=== PATIENT | female | born 2000 | race Caucasian/White ===

== ENCOUNTER 2022-05-21 14:56 | Inpatient (IN) | payer MEDICAID, OTHER ==
[~2022-05-21] VITALS: Ht 167.6 cm; Wt 54.0 kg
[2022-05-21 16:52] LABS: BASOPHILS % (AUTO) 0.9 % (0.0-2.0); EOSINOPHILS % (AUTO) 3.1 % (1.0-6.0); HEMATOCRIT 39.2 % (36-46); HEMOGLOBIN 12.9 g/dL (12.0-16.0); LYMPHOCYTES # (AUTO) 2.1 K/uL (1.0-4.8); LYMPHOCYTES % (AUTO) 33.6 % (22.0-44.0); MEAN CORPUSCULAR HEMOGLOBIN 29.5 pg (26.0-34.0); MEAN CORPUSCULAR VOLUME 89 fL (80-100); MONOCYTES # (AUTO) 0.5 K/uL (0.1-1.0); MONOCYTES % (AUTO) 8.4 % (2.0-9.0); NEUTROPHILS # (AUTO) 3.3 K/uL (1.8-7.7); PLATELET COUNT (AUTO) 248 K/uL (150-450); RED BLOOD CELL COUNT(AUTO) 4.39 MIL/uL (4.00-5.20); RED CELL DISTRIBUTION WIDTH 12.8 % (11.5-14.5)
[2022-05-21 17:00] LABS: COVID AG,FIA SOURCE NASAL SWAB
[2022-05-21 17:17] LABS: AMPHET/METH SCREEN,URINE NEGATIVE (NEGATIVE); BARBITURATE SCREEN, URINE NEGATIVE (NEGATIVE); BENZODIAZEPINES SCREEN,URINE NEGATIVE (NEGATIVE); CANNABINOID SCREEN,URINE NEGATIVE (NEGATIVE); COCAINE SCREEN,URINE NEGATIVE (NEGATIVE); METHADONE SCREEN, URINE NEGATIVE (NEGATIVE); OPIATE SCREEN,URINE NEGATIVE (NEGATIVE)
[2022-05-21 17:17] LABS: ANION GAP 8 mmol/L (8-16); CALCIUM, TOTAL 9.2 mg/dL (8.8-10.5); CARBON DIOXIDE 27 mmol/L (22-29); CHLORIDE 103 mmol/L (98-107); GLUCOSE,RANDOM 86 mg/dL (70-110); POTASSIUM 3.7 mmol/L (3.5-5.1); SODIUM SERUM 138 mmol/L (136-145); UREA NITROGEN, BLOOD 10 mg/dL (7-18)
[2022-05-21 17:19] LABS: GLOMERULAR FILTR. RATE CALC > 60 mL/min (>60)
[2022-05-21 17:19] LABS: PHENCYCLIDINE SCREEN,URINE NEGATIVE (NEGATIVE)
[2022-05-21 17:23] LABS: ALANINE AMINOTRANSFERASE 12 U/L (12-78); ALBUMIN 3.9 g/dL (3.4-5.0); ALKALINE PHOSPHATASE 60 U/L (46-116); ASPARTATE AMINOTRANSFERASE 13 U/L (15-37); BILIRUBIN,TOTAL 0.3 mg/dL (0.1-1.0); TOTAL PROTEIN, SERUM 7.6 g/dL (6.4-8.2)
[2022-05-21] MEDS ORDERED: LORazepam 2 MG TABLET PO PRN (17:45)
[2022-05-21] MEDS ORDERED: ZOLPIDEM TARTRATE 10 MG TABLET PO PRN (17:45)
[2022-05-21] MEDS ORDERED: QUEtiapine FUMARATE 100 MG TABLET PO PRN (17:45)
[2022-05-21 17:55] LABS: APPEARANCE,URINE CLEAR (CLEAR); BILIRUBIN,URINE NEGATIVE (NEGATIVE); GLUCOSE, URINE (UA) NEGATIVE (NEGATIVE); KETONES,URINE NEGATIVE (NEGATIVE); LEUKOCYTE ESTERASE ,URINE LARGE (NEGATIVE); NITRATE,URINE NEGATIVE (NEGATIVE); OCCULT BLOOD,URINE NEGATIVE (NEGATIVE); PROTEIN,URINE NEGATIVE (NEGATIVE); UROBILINOGEN,URINE <=1.0 mg/dL (<=1.0)
[2022-05-21 18:08] LABS: BACTERIA,URINE Few /HPF (None Seen); RBC,URINE None Seen /HPF (0-2); SQUAMOUS EPITHELIAL CELL,UR Few /LPF (None Seen)
[2022-05-21] MEDS ORDERED: CEPHALEXIN MONOHYDRATE 500 MG CAPSULE PO ONE (18:45)
[2022-05-21 21:00] LABS: HCG,QUANTITATIVE < 1 mIU/mL (0-6)
[2022-05-21 23:30] VITALS: BP 108/66
[2022-05-22] MEDS ORDERED: OMEPRAZOLE 20 MG CAPSULE PO PRN (07:00)
[2022-05-22] MEDS ORDERED: ONDANSETRON HCL 4 MG TABLET PO PRN (07:00)
[2022-05-22] MEDS ORDERED: BENZOCAINE/MENTHOL LOZENGE PO PRN (07:00)
[2022-05-22] MEDS ORDERED: ACETAMINOPHEN 325 MG TABLET PO PRN (07:00)
[2022-05-22] MEDS ORDERED: CloNIDine HCL 0.1 MG TABLET PO PRN (07:00)
[2022-05-22] MEDS ORDERED: DOCUSATE SODIUM 100 MG CAPSULE PO PRN (07:00)
[2022-05-22] MEDS ORDERED: PETROLATUM,WHITE 28 GM JELLY TP PRN (07:00)
[2022-05-22] MEDS ORDERED: LOPERAMIDE HCL 2 MG CAPSULE PO PRN (07:00)
[2022-05-22] MEDS ORDERED: IBUPROFEN 600 MG TABLET PO PRN (07:00)
[2022-05-22] MEDS ORDERED: BACITRACIN 28 GM OINTMENT TP PRN (07:00)
[2022-05-22] MEDS ORDERED: MAG HYDROX/AL HYDROX/SIMETH ES 30 ML SUSPENSION UDCUP PO PRN (07:00)
[2022-05-22] MEDS ORDERED: MAGNESIUM HYDROXIDE SUSPENSION 30 ML UDCUP PO PRN (07:00)
[2022-05-22] MEDS ORDERED: ALBUTEROL SULFATE HFA 90 MCG/PUFF 8 GM INHALER IH PRN (07:00)
[2022-05-22] MEDS: CEPHALEXIN MONOHYDRATE 500 MG CAPSULE PO SCH ×2 (08:21→16:40)
[2022-05-22 08:47] VITALS: BP 114/64
[2022-05-22] MEDS ORDERED: OLAN5TAB77 PO (11:09)
[2022-05-22] MEDS: OLANZapine 5 MG TABLET PO SCH ×2 (11:15→21:00)
[2022-05-22] MEDS: SERTRALINE HCL 50 MG TABLET PO SCH (11:15)
[2022-05-22 16:07] VITALS: BP 106/62
[2022-05-23 08:00] VITALS: BP 107/62
[2022-05-23] MEDS: SERTRALINE HCL 50 MG TABLET PO SCH (09:00)
[2022-05-23] MEDS: OLANZapine 5 MG TABLET PO SCH (09:00)
[2022-05-23] MEDS: CEPHALEXIN MONOHYDRATE 500 MG CAPSULE PO SCH ×2 (09:00→17:12)
[2022-05-23 16:00] VITALS: BP 111/68
[2022-05-23] MEDS: RisperiDONE 2 MG TABLET PO SCH (20:14)
[2022-05-24 08:30] VITALS: BP 101/61
[2022-05-24] MEDS: SERTRALINE HCL 50 MG TABLET PO SCH (09:00)
[2022-05-24] MEDS: RisperiDONE 2 MG TABLET PO SCH ×2 (09:00→20:38)
[2022-05-24] MEDS: CEPHALEXIN MONOHYDRATE 500 MG CAPSULE PO SCH ×2 (09:51→17:45)
[2022-05-24 16:22] VITALS: BP 104/60
[2022-05-25] MEDS: CEPHALEXIN MONOHYDRATE 500 MG CAPSULE PO SCH ×2 (08:20→16:19)
[2022-05-25] MEDS: SERTRALINE HCL 50 MG TABLET PO SCH (08:23)
[2022-05-25] MEDS: RisperiDONE 2 MG TABLET PO SCH ×2 (08:23→21:00)
[2022-05-25 09:33] VITALS: BP 105/64
[2022-05-25 16:00] VITALS: BP 115/68
[2022-05-25 21:42] VITALS: BP 122/75
[2022-05-26] MEDS: SERTRALINE HCL 50 MG TABLET PO SCH ×2 (08:09→09:00)
[2022-05-26] MEDS: CEPHALEXIN MONOHYDRATE 500 MG CAPSULE PO SCH ×2 (08:09→17:00)
[2022-05-26] MEDS: RisperiDONE 2 MG TABLET PO SCH ×3 (08:09→20:27)
[2022-05-26 08:40] VITALS: BP 98/62
[2022-05-26 16:39] VITALS: BP 107/71
[2022-05-27 07:39] LABS: COVID AG,FIA SOURCE NASAL SWAB
[2022-05-27] MEDS: CEPHALEXIN MONOHYDRATE 500 MG CAPSULE PO SCH ×3 (08:11→17:00)
[2022-05-27] MEDS: SERTRALINE HCL 50 MG TABLET PO SCH (08:11)
[2022-05-27] MEDS: RisperiDONE 2 MG TABLET PO SCH ×2 (08:11→20:15)
[2022-05-27 08:30] VITALS: BP 107/66
[2022-05-27 16:00] VITALS: BP 118/75
[2022-05-28 08:58] VITALS: BP 122/79
[2022-05-28] MEDS: SERTRALINE HCL 50 MG TABLET PO SCH (09:00)
[2022-05-28] MEDS: RisperiDONE 2 MG TABLET PO SCH ×2 (09:00→20:54)
[2022-05-28] MEDS: CEPHALEXIN MONOHYDRATE 500 MG CAPSULE PO SCH ×2 (09:00→17:00)
[2022-05-28 16:09] VITALS: BP 102/74
[2022-05-29 08:56] VITALS: BP 114/69
[2022-05-29] MEDS: RisperiDONE 2 MG TABLET PO SCH ×2 (09:00→21:00)
[2022-05-29] MEDS: SERTRALINE HCL 50 MG TABLET PO SCH (09:00)
[2022-05-29] MEDS ORDERED: HALOPERIDOL LACTATE 5 MG/ML VIAL ONE (19:38)
[2022-05-29] MEDS ORDERED: DiphenhydrAMINE HCL 50 MG/ML VIAL ONE (19:38)
[2022-05-29] MEDS ORDERED: LORazepam 2 MG/ML VIAL ONE (19:38)
[2022-05-29] MEDS ORDERED: LORazepam 2 MG/ML VIAL IM ONE (19:45)
[2022-05-29] MEDS ORDERED: HALOPERIDOL LACTATE 5 MG/ML VIAL IM ONE (19:45)
[2022-05-29] MEDS ORDERED: DiphenhydrAMINE HCL 50 MG/ML VIAL IM ONE (19:45)
[2022-05-30] MEDS: SERTRALINE HCL 50 MG TABLET PO SCH (08:35)
[2022-05-30] MEDS: RisperiDONE 2 MG TABLET PO SCH ×2 (08:35→20:32)
[2022-05-30 16:13] VITALS: BP 121/70
[2022-05-31] MEDS: SERTRALINE HCL 50 MG TABLET PO SCH (08:50)
[2022-05-31] MEDS: RisperiDONE 2 MG TABLET PO SCH ×2 (08:50→20:17)
[2022-05-31 16:25] VITALS: BP 107/68
[2022-06-01] MEDS: RisperiDONE 2 MG TABLET PO SCH ×2 (08:37→20:34)
[2022-06-01] MEDS: SERTRALINE HCL 50 MG TABLET PO SCH (08:37)
[2022-06-01 10:00] VITALS: BP 140/70
[2022-06-01 15:55] VITALS: BP 90/65
[2022-06-01 16:00] VITALS: BP 90/65
[2022-06-02] MEDS: RisperiDONE 2 MG TABLET PO SCH ×2 (09:00→21:20)
[2022-06-02] MEDS: SERTRALINE HCL 50 MG TABLET PO SCH (09:00)
[2022-06-02 09:12] VITALS: BP 107/70
[2022-06-02] MEDS ORDERED: HALOPERIDOL LACTATE 5 MG/ML VIAL IM PRN (12:15)
[2022-06-02] MEDS ORDERED: RisperiDONE 2 MG TABLET PO SCH (12:15)
[2022-06-02 16:45] VITALS: BP 125/84
[2022-06-03 08:37] VITALS: BP 115/70
[2022-06-03] MEDS: SERTRALINE HCL 50 MG TABLET PO SCH (10:19)
[2022-06-03] MEDS: RisperiDONE 2 MG TABLET PO SCH ×2 (10:19→21:04)
[2022-06-04 08:45] VITALS: BP 110/63
[2022-06-04] MEDS: SERTRALINE HCL 50 MG TABLET PO SCH (09:17)
[2022-06-04] MEDS: RisperiDONE 2 MG TABLET PO SCH ×2 (09:17→20:16)
[2022-06-04 12:40] LABS: COVID AG,FIA SOURCE NASAL SWAB
[2022-06-05] MEDS: SERTRALINE HCL 50 MG TABLET PO SCH (08:35)
[2022-06-05] MEDS: RisperiDONE 2 MG TABLET PO SCH ×2 (08:35→20:46)
[2022-06-05 16:32] VITALS: BP 126/65
[2022-06-06 08:00] VITALS: BP 104/56
[2022-06-06] MEDS: SERTRALINE HCL 50 MG TABLET PO SCH (08:58)
[2022-06-06] MEDS: RisperiDONE 2 MG TABLET PO SCH ×2 (08:58→21:16)
[2022-06-06 16:00] VITALS: BP 111/62
[2022-06-07 08:00] VITALS: BP 107/64
[2022-06-07] MEDS: SERTRALINE HCL 50 MG TABLET PO SCH (08:43)
[2022-06-07] MEDS: RisperiDONE 2 MG TABLET PO SCH ×2 (08:43→20:17)
[2022-06-07 09:50] VITALS: BP 107/64
[2022-06-07 16:00] VITALS: BP 101/63
[2022-06-08] MEDS: SERTRALINE HCL 50 MG TABLET PO SCH (08:54)
[2022-06-08] MEDS: RisperiDONE 2 MG TABLET PO SCH ×2 (08:54→20:34)
[2022-06-08 09:26] VITALS: BP 112/56
[2022-06-09] MEDS: SERTRALINE HCL 50 MG TABLET PO SCH (08:30)
[2022-06-09] MEDS: RisperiDONE 2 MG TABLET PO SCH (08:30)
[2022-06-09 09:42] VITALS: BP 105/65
[2022-06-09] MEDS ORDERED: SERT-158 PO (11:35)
[2022-06-09] MEDS ORDERED: RISP2TAB45 PO (11:35)
[2022-06-09] MEDS ORDERED: SERT-439 PO (17:20)
[2022-06-09] MEDS ORDERED: RISP2TAB86 PO (17:20)
== END 2022-06-09 14:30 | disposition home or self-care (01) | DRG 750 ==
LOC: EMS 14:59 → 3EI 21:10
PROVIDERS: ADMIT Psychiatry & Neurology Psychiatry; ATTEND Psychiatry & Neurology Psychiatry
DX: F20.0 Paranoid schizophrenia (principal); R45.851 Suicidal ideations; Z91.14 Patient's other noncompliance with medication regimen; F12.90 Cannabis use, unspecified, uncomplicated; F14.90 Cocaine use, unspecified, uncomplicated; F32.A Depression, unspecified; G47.00 Insomnia, unspecified; Z20.822 Contact with and (suspected) exposure to COVID-19; K59.00 Constipation, unspecified; S61.512A Laceration without foreign body of left wrist, initial encounter; X58.XXXA Exposure to other specified factors, initial encounter; N39.0 Urinary tract infection, site not specified; Z79.899 Other long term (current) drug therapy; Y93.89 Activity, other specified; Y92.89 Other specified places as the place of occurrence of the external cause; Y99.8 Other external cause status
CPT/HCPCS: 76856; 80053; 81001; 84702; 85025; G0480; J1200; J1630; J2060

== ENCOUNTER 2022-06-12 11:17 | Inpatient (IN) | payer MEDICAID, OTHER ==
[~2022-06-12] VITALS: Ht 167.6 cm; Wt 52.9 kg
[~2022-06-12 11:17] MED LIST: RISP2TAB45 PO; RISP2TAB86 PO; SERT-158 PO; SERT-439 PO
[2022-06-12 12:00] LABS: BASOPHILS % (AUTO) 0.7 % (0.0-2.0); EOSINOPHILS % (AUTO) 1.3 % (1.0-6.0); HEMATOCRIT 40.1 % (36-46); HEMOGLOBIN 13.4 g/dL (12.0-16.0); LYMPHOCYTES # (AUTO) 1.5 K/uL (1.0-4.8); LYMPHOCYTES % (AUTO) 23.2 % (22.0-44.0); MEAN CORPUSCULAR HEMOGLOBIN 29.3 pg (26.0-34.0); MEAN CORPUSCULAR HGB CONC 33.3 G/dL (31.0-37.0); MEAN CORPUSCULAR VOLUME 88 fL (80-100); MONOCYTES # (AUTO) 0.7 K/uL (0.1-1.0); MONOCYTES % (AUTO) 10.4 % (2.0-9.0); NEUTROPHILS # (AUTO) 4.1 K/uL (1.8-7.7); NEUTROPHILS % (AUTO) 64.4 % (40.0-70.0); PLATELET COUNT (AUTO) 280 K/uL (150-450); RED BLOOD CELL COUNT(AUTO) 4.56 MIL/uL (4.00-5.20); RED CELL DISTRIBUTION WIDTH 12.4 % (11.5-14.5)
[2022-06-12 12:04] LABS: ANION GAP 10 mmol/L (8-16); CALCIUM, TOTAL 9.1 mg/dL (8.8-10.5); CARBON DIOXIDE 26 mmol/L (22-29); CHLORIDE 103 mmol/L (98-107); CREATININE 0.64 mg/dL (0.60-1.30); GLOMERULAR FILTR. RATE CALC > 60 mL/min (>60); GLUCOSE,RANDOM 116 mg/dL (70-110); POTASSIUM 3.7 mmol/L (3.5-5.1); SODIUM SERUM 139 mmol/L (136-145); UREA NITROGEN, BLOOD 13 mg/dL (7-18)
[2022-06-12 12:10] LABS: ALANINE AMINOTRANSFERASE 12 U/L (12-78); ALBUMIN 4.2 g/dL (3.4-5.0); ALKALINE PHOSPHATASE 67 U/L (46-116); ASPARTATE AMINOTRANSFERASE 14 U/L (15-37); BILIRUBIN,TOTAL 0.4 mg/dL (0.1-1.0); TOTAL PROTEIN, SERUM 8.5 g/dL (6.4-8.2)
[2022-06-12 13:41] LABS: COVID AG,FIA SOURCE NASAL SWAB
[2022-06-12] MEDS ORDERED: LORazepam 2 MG TABLET PO PRN (14:30)
[2022-06-12] MEDS ORDERED: HALOPERIDOL 5 MG TABLET PO PRN (14:30)
[2022-06-12] MEDS ORDERED: HALOPERIDOL LACTATE 5 MG/ML VIAL IM ONE (15:45)
[2022-06-12] MEDS ORDERED: DiphenhydrAMINE HCL 50 MG/ML VIAL IM ONE (15:45)
[2022-06-12] MEDS ORDERED: LORazepam 2 MG/ML VIAL IM ONE (15:45)
[2022-06-13 02:26] VITALS: BP 106/66
[2022-06-13] MEDS ORDERED: INFLUENZA VIRUS VACCINE QVS 2022-23 (6MO+)/PF 60 MCG/0.5 ML SYRINGE IM. ONE (04:30)
[2022-06-13 09:21] VITALS: BP 101/67
[2022-06-13] MEDS: RisperiDONE 2 MG TABLET PO SCH ×2 (10:45→21:01)
[2022-06-13] MEDS ORDERED: CloNIDine HCL 0.1 MG TABLET PO PRN (10:45)
[2022-06-13] MEDS ORDERED: ONDANSETRON HCL 4 MG TABLET PO PRN (10:45)
[2022-06-13] MEDS ORDERED: ALBUTEROL SULFATE HFA 90 MCG/PUFF 8 GM INHALER IH PRN (10:45)
[2022-06-13] MEDS ORDERED: MAGNESIUM HYDROXIDE SUSPENSION 30 ML UDCUP PO PRN (10:45)
[2022-06-13] MEDS ORDERED: NICOTINE 14 MG/24 HOUR PATCH TD PRN (10:45)
[2022-06-13] MEDS ORDERED: GuaiFENesin/D-METHORPHAN [SUGAR-FREE] 200-20MG/10 ML SYRUP UDCUP PO PRN (10:45)
[2022-06-13] MEDS ORDERED: PETROLATUM,WHITE 28 GM JELLY TP PRN (10:45)
[2022-06-13] MEDS ORDERED: DOCUSATE SODIUM 100 MG CAPSULE PO PRN (10:45)
[2022-06-13] MEDS ORDERED: IBUPROFEN 400 MG TABLET PO PRN (10:45)
[2022-06-13] MEDS: SERTRALINE HCL 50 MG TABLET PO SCH (10:45)
[2022-06-13] MEDS ORDERED: LOPERAMIDE HCL 2 MG CAPSULE PO PRN (10:45)
[2022-06-13] MEDS ORDERED: ACETAMINOPHEN 325 MG TABLET PO PRN (10:45)
[2022-06-13 14:23] VITALS: BP 106/65
[2022-06-13 18:09] VITALS: BP 135/74
[2022-06-13] MEDS ORDERED: RisperiDONE 2 MG TABLET PO SCH (21:00)
[2022-06-13] MEDS: ZOLPIDEM TARTRATE 10 MG TABLET PO PRN (21:01)
[2022-06-14] MEDS: SERTRALINE HCL 50 MG TABLET PO SCH (08:13)
[2022-06-14] MEDS: RisperiDONE 2 MG TABLET PO SCH ×2 (08:13→20:16)
[2022-06-14 09:00] VITALS: BP 134/80
[2022-06-14 16:30] VITALS: BP 93/54
[2022-06-15] MEDS: SERTRALINE HCL 50 MG TABLET PO SCH (08:43)
[2022-06-15] MEDS: RisperiDONE 2 MG TABLET PO SCH ×2 (08:43→20:49)
[2022-06-15 09:30] VITALS: BP 122/67
[2022-06-15 17:07] VITALS: BP 103/57
[2022-06-16] MEDS: SERTRALINE HCL 50 MG TABLET PO SCH (09:19)
[2022-06-16] MEDS: RisperiDONE 2 MG TABLET PO SCH ×2 (09:19→21:30)
[2022-06-16 09:21] VITALS: BP 107/72
[2022-06-16 16:16] VITALS: BP 157/77
[2022-06-16] MEDS: ZOLPIDEM TARTRATE 10 MG TABLET PO PRN (21:30)
[2022-06-17] MEDS: RisperiDONE 2 MG TABLET PO SCH ×2 (08:51→20:45)
[2022-06-17] MEDS: SERTRALINE HCL 50 MG TABLET PO SCH (08:51)
[2022-06-17 09:00] VITALS: BP 101/65
[2022-06-17 16:55] VITALS: BP 96/56
[2022-06-17] MEDS: ZOLPIDEM TARTRATE 10 MG TABLET PO PRN (20:45)
[2022-06-18 06:44] LABS: COVID AG,FIA SOURCE NASAL SWAB
[2022-06-18 07:38] LABS: BILIRUBIN,URINE NEGATIVE (NEGATIVE); GLUCOSE, URINE (UA) NEGATIVE (NEGATIVE); KETONES,URINE NEGATIVE (NEGATIVE); LEUKOCYTE ESTERASE ,URINE MODERATE (NEGATIVE); NITRATE,URINE NEGATIVE (NEGATIVE); OCCULT BLOOD,URINE NEGATIVE (NEGATIVE); PH,URINE 6.5 (5.0-8.0); PROTEIN,URINE NEGATIVE (NEGATIVE); SPECIFIC GRAVITIY, URINE 1.004 (1.003-1.030); UROBILINOGEN,URINE <=1.0 mg/dL (<=1.0)
[2022-06-18 07:41] LABS: APPEARANCE,URINE HAZY (CLEAR)
[2022-06-18 07:45] LABS: BACTERIA,URINE None Seen /HPF (None Seen); RBC,URINE None Seen /HPF (0-2); SQUAMOUS EPITHELIAL CELL,UR Few /LPF (None Seen)
[2022-06-18] MEDS: RisperiDONE 2 MG TABLET PO SCH ×2 (08:22→20:24)
[2022-06-18] MEDS: SERTRALINE HCL 50 MG TABLET PO SCH (08:22)
[2022-06-18 11:11] VITALS: BP 148/83
[2022-06-18 17:09] VITALS: BP 102/65
[2022-06-18] MEDS ORDERED: PALIPERIDONE PALMITATE 234 MG/1.5 ML SYRINGE IM ONE (17:15)
[2022-06-19] MEDS: RisperiDONE 2 MG TABLET PO SCH ×2 (10:19→20:46)
[2022-06-19] MEDS: SERTRALINE HCL 50 MG TABLET PO SCH (10:19)
[2022-06-19 11:14] VITALS: BP 122/68
[2022-06-19] MEDS: MAG HYDROX/AL HYDROX/SIMETH ES 30 ML SUSPENSION UDCUP PO PRN (16:40)
[2022-06-19 16:44] VITALS: BP 121/84
[2022-06-20] MEDS: MAG HYDROX/AL HYDROX/SIMETH ES 30 ML SUSPENSION UDCUP PO PRN ×2 (06:50→16:57)
[2022-06-20 08:02] VITALS: BP 116/69
[2022-06-20] MEDS: SERTRALINE HCL 50 MG TABLET PO SCH (08:54)
[2022-06-20] MEDS: RisperiDONE 2 MG TABLET PO SCH ×2 (08:54→20:46)
[2022-06-20 16:00] VITALS: BP 127/78
[2022-06-21] MEDS: MAG HYDROX/AL HYDROX/SIMETH ES 30 ML SUSPENSION UDCUP PO PRN ×2 (06:30→17:02)
[2022-06-21] MEDS: RisperiDONE 2 MG TABLET PO SCH ×2 (09:19→20:13)
[2022-06-21] MEDS: SERTRALINE HCL 50 MG TABLET PO SCH (09:19)
[2022-06-21 16:31] VITALS: BP 131/74
[2022-06-21 20:45] VITALS: BP 102/61
[2022-06-22] MEDS: RisperiDONE 2 MG TABLET PO SCH ×2 (08:17→20:41)
[2022-06-22] MEDS: SERTRALINE HCL 50 MG TABLET PO SCH (08:17)
[2022-06-22] MEDS: MAG HYDROX/AL HYDROX/SIMETH ES 30 ML SUSPENSION UDCUP PO PRN (08:27)
[2022-06-22 08:49] VITALS: BP 124/68
[2022-06-22] MEDS ORDERED: PALIPERIDONE PALMITATE 156 MG/ML SYRINGE IM ONE (09:00)
[2022-06-22 16:54] VITALS: BP 102/61
[2022-06-23 09:40] VITALS: BP 106/64
[2022-06-23] MEDS: RisperiDONE 2 MG TABLET PO SCH (10:10)
[2022-06-23] MEDS: SERTRALINE HCL 50 MG TABLET PO SCH (10:10)
[2022-06-23 16:30] VITALS: BP 124/60
[2022-06-24] MEDS ORDERED: RISP2TAB86 PO (04:55)
[2022-06-24] MEDS ORDERED: SERT-439 PO (04:55)
[2022-06-24] MEDS ORDERED: PALI234D IM (04:55)
== END 2022-06-23 20:52 | disposition home or self-care (01) | DRG 750 ==
LOC: EMS 11:19 → 3EI 06-13 00:29
PROVIDERS: ADMIT Psychiatry & Neurology Child & Adolescent Psychiatry; ATTEND Psychiatry & Neurology Psychiatry
DX: F20.0 Paranoid schizophrenia (principal); F31.4 Bipolar disorder, current episode depressed, severe, without psychotic features; F10.10 Alcohol abuse, uncomplicated; F41.9 Anxiety disorder, unspecified; R73.9 Hyperglycemia, unspecified; Z20.822 Contact with and (suspected) exposure to COVID-19; F19.10 Other psychoactive substance abuse, uncomplicated; Y90.9 Presence of alcohol in blood, level not specified; Z71.41 Alcohol abuse counseling and surveillance of alcoholic
CPT/HCPCS: 80053; 81001; 84703; 85025; 87081; 87086; 87186; 99285; G0480; J1200; J1630; J2060

== ENCOUNTER 2022-10-30 13:28 | Inpatient (IN) | payer MEDICAID ==
[~2022-10-30] VITALS: Ht 167.6 cm; Wt 61.2 kg
[~2022-10-30 13:28] MED LIST changes: +PALI234D IM; -RISP2TAB45 PO; -SERT-158 PO
[2022-10-30 14:15] VITALS: BP 109/83
[2022-10-30] MEDS ORDERED: ZOLPIDEM TARTRATE 10 MG TABLET PO PRN (14:30)
[2022-10-30] MEDS ORDERED: HALOPERIDOL 5 MG TABLET PO PRN (14:30)
[2022-10-30 15:40] VITALS: BP 129/83
[2022-10-30] MEDS: LORazepam 1 MG TABLET PO PRN (16:03)
[2022-10-30 17:11] LABS: GLUCOMETER DEV NAME(LOC) POC.BV
[2022-10-30] MEDS ORDERED: ONDANSETRON HCL 4 MG TABLET PO PRN (18:00)
[2022-10-30] MEDS ORDERED: LOPERAMIDE HCL 2 MG CAPSULE PO PRN (18:00)
[2022-10-30] MEDS ORDERED: ALBUTEROL SULFATE HFA 90 MCG/PUFF 8 GM INHALER IH PRN (18:00)
[2022-10-30] MEDS ORDERED: MAGNESIUM HYDROXIDE SUSPENSION 30 ML UDCUP PO PRN (18:00)
[2022-10-30] MEDS ORDERED: CloNIDine HCL 0.1 MG TABLET PO PRN (18:00)
[2022-10-30] MEDS ORDERED: GuaiFENesin/D-METHORPHAN [SUGAR-FREE] 200-20MG/10 ML SYRUP UDCUP PO PRN (18:00)
[2022-10-30] MEDS ORDERED: MAG HYDROX/AL HYDROX/SIMETH ES 30 ML SUSPENSION UDCUP PO PRN (18:00)
[2022-10-30] MEDS ORDERED: ACETAMINOPHEN 325 MG TABLET PO PRN (18:00)
[2022-10-30] MEDS ORDERED: DOCUSATE SODIUM 100 MG CAPSULE PO PRN (18:00)
[2022-10-30] MEDS ORDERED: PETROLATUM,WHITE 28 GM JELLY TP PRN (18:00)
[2022-10-30] MEDS ORDERED: NICOTINE 14 MG/24 HOUR PATCH TD PRN (18:00)
[2022-10-30] MEDS ORDERED: IBUPROFEN 400 MG TABLET PO PRN (18:00)
[2022-10-30 20:35] VITALS: BP 100/65
[2022-10-31 08:05] LABS: BASOPHILS % (AUTO) 0.7 % (0.0-2.0); EOSINOPHILS % (AUTO) 7.6 % (1.0-6.0); HEMATOCRIT 41.2 % (36-46); HEMOGLOBIN 13.7 g/dL (12.0-16.0); LYMPHOCYTES % (AUTO) 35.9 % (22.0-44.0); MEAN CORPUSCULAR HEMOGLOBIN 28.9 pg (26.0-34.0); MEAN CORPUSCULAR HGB CONC 33.2 G/dL (31.0-37.0); MEAN CORPUSCULAR VOLUME 87 fL (80-100); MONOCYTES # (AUTO) 0.7 K/uL (0.1-1.0); MONOCYTES % (AUTO) 12.3 % (2.0-9.0); NEUTROPHILS # (AUTO) 2.4 K/uL (1.8-7.7); NEUTROPHILS % (AUTO) 43.5 % (40.0-70.0); PLATELET COUNT (AUTO) 276 K/uL (150-450); RED BLOOD CELL COUNT(AUTO) 4.73 MIL/uL (4.00-5.20); RED CELL DISTRIBUTION WIDTH 13.5 % (11.5-14.5)
[2022-10-31 08:21] VITALS: BP 103/68
[2022-10-31 08:28] LABS: ALANINE AMINOTRANSFERASE 11 U/L (12-78); ALBUMIN 4.1 g/dL (3.4-5.0); ALKALINE PHOSPHATASE 60 U/L (46-116); ANION GAP 16 mmol/L (8-16); ASPARTATE AMINOTRANSFERASE 15 U/L (15-37); BILIRUBIN,TOTAL 0.8 mg/dL (0.1-1.0); CALCIUM, TOTAL 9.4 mg/dL (8.8-10.5); CARBON DIOXIDE 21 mmol/L (22-29); CHLORIDE 100 mmol/L (98-107); CHOL/HDL RATIO 2.1 (3.9-5.7); CHOLESTEROL 159 mg/dL (131-200); CREATININE 0.73 mg/dL (0.60-1.30); FREE T4 (FREE THYROXINE) 1.54 ng/dL (0.76-1.46); GLOMERULAR FILTR. RATE CALC > 60 mL/min (>60); GLUCOSE,RANDOM 122 mg/dL (70-110); HCG,QUANTITATIVE < 1 mIU/mL (0-6); HDL CHOLESTEROL 75 mg/dL (40-60); LDL CHOL (CALC.) 76 mg/dL (0-130); POTASSIUM 3.8 mmol/L (3.5-5.1); SODIUM SERUM 137 mmol/L (136-145); THYROID STIMULATING HORMONE 1.41 uIU/mL (0.36-3.74); TOTAL PROTEIN, SERUM 8.5 g/dL (6.4-8.2); TRIGLYCERIDES 39 mg/dL (15-150)
[2022-10-31] MEDS: SERTRALINE HCL 50 MG TABLET PO SCH (11:53)
[2022-10-31] MEDS: RisperiDONE 2 MG TABLET PO SCH ×2 (11:53→20:59)
[2022-10-31 18:36] LABS: APPEARANCE,URINE HAZY (CLEAR); BILIRUBIN,URINE NEGATIVE (NEGATIVE); GLUCOSE, URINE (UA) NEGATIVE (NEGATIVE); KETONES,URINE NEGATIVE (NEGATIVE); LEUKOCYTE ESTERASE ,URINE LARGE (NEGATIVE); NITRATE,URINE NEGATIVE (NEGATIVE); OCCULT BLOOD,URINE NEGATIVE (NEGATIVE); PROTEIN,URINE NEGATIVE (NEGATIVE); SPECIFIC GRAVITIY, URINE 1.017 (1.003-1.030); UROBILINOGEN,URINE <=1.0 mg/dL (<=1.0)
[2022-10-31 18:43] LABS: AMPHET/METH SCREEN,URINE POSITIVE (NEGATIVE); BARBITURATE SCREEN, URINE NEGATIVE (NEGATIVE); BENZODIAZEPINES SCREEN,URINE NEGATIVE (NEGATIVE); CANNABINOID SCREEN,URINE NEGATIVE (NEGATIVE); COCAINE SCREEN,URINE NEGATIVE (NEGATIVE); METHADONE SCREEN, URINE NEGATIVE (NEGATIVE); OPIATE SCREEN,URINE NEGATIVE (NEGATIVE); PHENCYCLIDINE SCREEN,URINE NEGATIVE (NEGATIVE)
[2022-10-31 18:58] LABS: BACTERIA,URINE Few /HPF (None Seen); RBC,URINE 0-2 /HPF (0-2); SQUAMOUS EPITHELIAL CELL,UR Few /LPF (None Seen)
[2022-11-01 05:37] VITALS: BP 106/62
[2022-11-01] MEDS: RisperiDONE 2 MG TABLET PO SCH ×2 (08:56→20:05)
[2022-11-01] MEDS: CEPHALEXIN MONOHYDRATE 500 MG CAPSULE PO SCH ×3 (08:56→16:54)
[2022-11-01] MEDS: SERTRALINE HCL 50 MG TABLET PO SCH (08:56)
[2022-11-01 10:06] VITALS: BP 96/51
[2022-11-01 20:03] VITALS: BP 105/63
[2022-11-02] MEDS: RisperiDONE 2 MG TABLET PO SCH ×2 (08:07→20:19)
[2022-11-02] MEDS: CEPHALEXIN MONOHYDRATE 500 MG CAPSULE PO SCH ×3 (08:07→17:01)
[2022-11-02] MEDS: SERTRALINE HCL 50 MG TABLET PO SCH (08:07)
[2022-11-02 08:22] VITALS: BP 95/53
[2022-11-02] MEDS: LORazepam 1 MG TABLET PO PRN (13:31)
[2022-11-02 21:28] VITALS: BP 113/63
[2022-11-03] MEDS: CEPHALEXIN MONOHYDRATE 500 MG CAPSULE PO SCH ×3 (08:17→16:33)
[2022-11-03] MEDS: RisperiDONE 2 MG TABLET PO SCH ×2 (08:17→20:27)
[2022-11-03] MEDS: SERTRALINE HCL 50 MG TABLET PO SCH (08:17)
[2022-11-03 08:33] VITALS: BP 110/72
[2022-11-03 20:03] VITALS: BP 106/60
[2022-11-04] MEDS: SERTRALINE HCL 50 MG TABLET PO SCH (08:07)
[2022-11-04] MEDS: CEPHALEXIN MONOHYDRATE 500 MG CAPSULE PO SCH ×3 (08:07→16:15)
[2022-11-04] MEDS: RisperiDONE 2 MG TABLET PO SCH ×2 (08:07→20:15)
[2022-11-04 08:37] VITALS: BP 114/76
[2022-11-04 20:25] VITALS: BP 98/69
[2022-11-05] MEDS: CEPHALEXIN MONOHYDRATE 500 MG CAPSULE PO SCH ×2 (08:24→12:30)
[2022-11-05] MEDS: RisperiDONE 2 MG TABLET PO SCH (08:24)
[2022-11-05] MEDS: SERTRALINE HCL 50 MG TABLET PO SCH (08:24)
[2022-11-05 08:27] VITALS: BP 109/65
[2022-11-05] MEDS ORDERED: CEPH-558 PO (12:22)
== END 2022-11-05 13:03 | disposition home or self-care (01) | DRG 750 ==
LOC: B3A 14:26
PROVIDERS: ADMIT Psychiatry & Neurology Psychiatry; ATTEND Psychiatry & Neurology Psychiatry
DX: F20.0 Paranoid schizophrenia (principal); R45.851 Suicidal ideations; F10.10 Alcohol abuse, uncomplicated; Z20.822 Contact with and (suspected) exposure to COVID-19; F15.10 Other stimulant abuse, uncomplicated; F32.A Depression, unspecified; N39.0 Urinary tract infection, site not specified; F41.9 Anxiety disorder, unspecified; G47.00 Insomnia, unspecified; Z59.00 Homelessness unspecified; Z79.899 Other long term (current) drug therapy
CPT/HCPCS: 80053; 80061; 80307; 81001; 84439; 84443; 84702; 85025; 87086; 87186; G0480